=== PATIENT | male | born 2000 | race Caucasian/White ===

== ENCOUNTER 2019-02-12 10:03 | Emergency (ER) | payer OTHER ==
[~2019-02-12] VITALS: Ht 177.8 cm; Wt 54.4 kg
[2019-02-12 10:11] VITALS: BP_SYST 117
[2019-02-12 10:26] VITALS: BP_SYST 116
[2019-02-12] MEDS ORDERED: ONDANSETRON 4 MG ODT TAB PO ONE (10:30)
== END 2019-02-12 10:26 | disposition home or self-care (01) ==
LOC: SED 10:03
DX: R11.10 Vomiting, unspecified (principal)
CPT/HCPCS: 99283; Q0162